=== PATIENT | female | born 1960 | race Caucasian/White ===

== ENCOUNTER 2019-01-14 15:00 | Outpatient (RCR) | payer BC, SELFPAY ==
--- NOTE | 2018-12-09 16:54 | HMH.PTOPEV ---
PT Outpatient Evaluation Rehab PT Outpatient Evaluation Start: 12/09/18 16:38 Freq: Status: Active Protocol: Document 12/09/18 16:39 TISHAKEY (Rec: 12/09/18 16:54 TISHAKEY [id number]) Electronically Signed By Solis Lundberg PT 12/09/18 16:39 Outpatient Therapy Subjective History Subjective History This is the initial Physical THerapy evaluation for Sue Zhang. Pt is a 58 y/o female referred to PT for c/o LBP and LLE pain. Pt reports insidious onset of pain in lumbosacral area and LLE. t reports she began noticing pain in recent trip to [place]. Pt reports her pain is in post thigh and anterior medial thigh a Pt reports she recently began having lymphedema therapy for R ankle and lower leg.begannd lumbosacral area. Chief Complaint Pain,Stiff Symptom Type Ache,Burning,Other Symptoms Relieved By Rest/Positioning,Prescription Meds Symptoms Aggravated By Physical Activity,Twisting, Walking Prior Functional Limitations None Current Functional Limitations Housework,Driving,Sleeping, Recreation Activity,Walking, Stairs Symptom Description Constant but Variable Level of pain today (0-10) 2 Pain scale - at its best (0-10) 2 Pain scale - at its worst (0-10) 6 Lumbopelvic Eval Gait Observation General Gait Pattern Observation Antalgic Gait,Decrease Weight Bear (R),Decrease Stride Lngth (L) Palapation tenderness bilateral buttock tenderness Yes Lumbar/Sacral Palpation Findings Tenderness Lumbar/Sacral Palpation Overall Comment TTP B SI joint Range of Motion Lumbar Spine ROM Reason Not Measured Within Functional Limits Special Tests Lumbar Spine Screen Negative Hip Scouring (Quadrant) Test Negative Left,Negative Right Sciatic Nerve Tension Test Negative Left,Negative Right Reverse Sciatic Nerve Tension Test Negative Left,Negative Right Hip 90-90 Straight Leg Raise Test Negative Left,Negative Right Unilateral Straight Leg Raise (Lasegue) Negative Left,Negative Right Test Sacroiliac Joint Compression Test Positive Left Sacroiliac Joint Distraction Test Positive Left Outpatient Therapy Assessment Impairments Problems/Impairmments Palpation Tenderness,Impaired
== END 2019-01-14 15:05 | disposition home or self-care (01) ==
LOC: PT 15:00
PROVIDERS: Visit Provider Internal Medicine Adolescent Medicine
DX: M54.5 Low back pain (principal); M54.32 Sciatica, left side
CPT/HCPCS: 97110; 97163

== ENCOUNTER 2019-01-14 16:00 | Outpatient (RCR) | payer BC, SELFPAY ==
--- NOTE | 2018-11-18 08:35 | HMH.PTOPWND ---
Rehab Outpt Wound Evaluation Rehab OP Wound Evaluation Start: 11/18/18 07:57 Freq: Status: Active Protocol: Document 11/18/18 08:27 JESS (Rec: 11/18/18 08:35 PHORNE [id number]) Electronically Signed By Kiko Lamb, PT 11/18/18 08:27 Subjective/History History History Pt is 58 yowf who presents with c/o increased swelling in malick LE, right worse than left , x ~ 3-4 yrs with insidious onset of symptoms. 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 She also reports the swelling decreases at night while she sleeps. She also c/o newer onset LB and malick thigh pain x ~ 3-4 mos with insidious onset also, however it is unclear if these two problems are related. She has hx of asthma, and C- section x 1. Subjective Subjective Currently no c/o pain, but pain in the LB and upper legs is rated 7/10 at worst. Pain is worst with walking and standing. 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 Stemmer's sign Stemmer's Sign no Stage of Lymphedema Lymphedema stages Stage I (Pitting edema, reduces w/ elevation, no fibrosis) Skin Changes Dry Skin Yes Redness Yes Pain Scale Pain Scale (0-10) 7 Affected Extremities Areas Affected by Lymphedema/Edema Right Lower Extremity Left Lower Extremity Manual Lymphatic Drainage Treatment Area MLD Treatment Area Right Lower Extremity Left Lower Extremity Wound Problems/Impairments Impairments Problems/Impairmments Palpation Tenderness Impaired Endurance Impaired Walking Impaired Standing Impaired Recreational Activities Increased Edema Lymphedema Present Subjective C/O Pain Impaired Self Care/Self Management Prognosis Rehab Potent
== END 2019-01-14 16:05 | disposition home or self-care (01) ==
LOC: PT 16:00
PROVIDERS: Visit Provider Internal Medicine Adolescent Medicine
DX: I89.0 Lymphedema, not elsewhere classified (principal); L03.116 Cellulitis of left lower limb
CPT/HCPCS: 97140

== ENCOUNTER → 2020-11-15 17:38 | Outpatient (CLI) | payer BC, SELFPAY | PROVIDERS: PCP Internal Medicine Adolescent Medicine; Visit Provider Internal Medicine Adolescent Medicine | DX: Z20.822 Contact with and (suspected) exposure to COVID-19 (principal) | CPT/HCPCS: U0003 ==

== ENCOUNTER → 2020-11-18 07:07 | Outpatient (CLI) | payer BC, SELFPAY ==
--- NOTE | 2020-11-18 07:21 | US_ITS ---
PROCEDURE: US ABDOMEN LIMITED CLINICAL INDICATION: EPIGASTRIC PAIN,GASTRITIS COMPARISON: No exams were available for comparison FINDINGS: PANCREAS: Unremarkable. No obvious mass or abnormal fluid collection. No ductal dilatation LIVER: No focal liver lesions demonstrated. Homogeneous echogenicity. No intrahepatic biliary ductal dilatation evident. There is appropriate direction of blood flow within a non dilated portal vein RIGHT KIDNEY: Unremarkable. Normal size and echogenicity. No hydronephrosis GALLBLADDER: Wall echo shadow sign noted of the gallbladder approximately 9 cm in length. The posterior wall the gallbladder and the central aspect of the gallbladder not visualized due to the shadowing stones.. The common bile duct is normal at 3 mm. No anterior gallbladder wall thickening. IMPRESSION: Wall echo shadow sign consistent with gallbladder filled with stones which may be distended Dictated by: Avinash Taylor MD 11/18/2020 09:33 Avinash Taylor MD in [facility] 11/18/2020 09:33
[2020-11-18 08:33] LABS: Chloride 108 mmol/L (98-107); Potassium 3.6 mmoL/L (3.5-5.1); Sodium 142 mmol/L (136-145)
[2020-11-18 08:36] LABS: Alanine Aminotransferase 17 U/L (12-78); Albumin Level 3.7 g/dl (3.5-5.0); Alkaline Phosphatase 69 U/L (38-126); Anion Gap 9.6 mEq/L (5-15); Aspartate Amino Transferase 25 U/L (14-36); Bilirubin,Total 0.5 mg/dl (0.2-1.3); Blood Urea Nitrogen 19 mg/dl (7-17); Calcium 9.4 mg/dl (8.4-10.2); Carbon Dioxide 28 mmol/L (22.0-30.0); Estimated Glomerular Filt Rate 125 ml/min (>60); GFR (African American) 152 ML/MIN (>60); Globulin 3.7 g/dL (1.3-3.2); Glucose 129 mg/dl (74-100); Lipase 72 U/L (23-300); Total Protein,Serum 7.4 g/dl (6.3-8.2)
== END ==
PROVIDERS: PCP Internal Medicine Adolescent Medicine; Visit Provider Internal Medicine Adolescent Medicine
DX: R10.13 Epigastric pain (principal); K29.00 Acute gastritis without bleeding
CPT/HCPCS: 36415; 76705; 80053; 83690

== ENCOUNTER → 2020-12-09 09:33 | Outpatient (CLI) | payer BC, SELFPAY ==
[2020-12-09 10:40] LABS: Blood Urea Nitrogen 18 mg/dl (7-17); Estimated Glomerular Filt Rate 162 ml/min (>60); GFR (African American) 196 ML/MIN (>60)
== END ==
PROVIDERS: Visit Provider Surgery
DX: Z01.812 Encounter for preprocedural laboratory examination (principal)
CPT/HCPCS: 36415; 82565; 84520

== ENCOUNTER → 2020-12-15 09:37 | Outpatient (CLI) | payer BC, SELFPAY ==
--- NOTE | 2020-12-15 09:37 | CT_ITS ---
PROCEDURE: CT ABDOMEN PELVIS W CON CLINICAL INDICATION: mid/lower abdominal pain COMPARISON: No exams were available for comparison TECHNIQUE: Axial images obtained with sagittal and coronal reformats. All CT scans at the facility use one or more dose reduction, viz: automated exposure control, ma/kV adjustment per patient size (including targeted exams where dose is matched to indication, i.e. head), or iterative reconstruction technique. FINDINGS: LOWER THORAX: Bibasal atelectasis. Vascular calcification of the mitral valve is noted. 2 atherosclerotic vascular calcification of the aortic valve. HEPATOBILIARY: Liver: No focal hepatic lesions. Gallbladder: Calcified gallstones are present, without pericholecystic stranding. Biliary: No intrahepatic or extrahepatic ductal dilation. PANCREAS: No focal masses or ductal dilatation. SPLEEN:No splenomegaly. Few splenic calcifications are noted, likely secondary to prior granulomatous disease. ADRENALS:No adrenal nodules. KIDNEYS/URETERS/BLADDER: Nonobstructing left renal calculus measuring 3 millimeters. No hydronephrosis, or solid mass lesions are seen in the visualized portions of the kidneys. PERITONEUM / RETROPERITONEUM: No free air or fluid. LYMPH NODES: No free air or fluid. The uterus is unremarkable. Focal calcifications noted, may represent calcified fibroids. VASCULAR: Minor atherosclerotic vascular calcification of the abdominal aorta GI TRACT: No distention, wall thickening, or inflammatory stranding. Mild to moderate fecal retention of the colon is noted. The appendix is not visualized although no secondary signs of appendicitis are noted. ABDOMINAL WALL: Small fat containing umbilical hernia is noted. SOFT TISSUES: Unremarkable. BONES: Unremarkable. IMPRESSION: Cholelithiasis without evidence of cholecystitis. Nonobstructing left renal calculus measuring 3 millimeters. No evidence of hydronephrosis. Dictated by: Jackelyn York 12/15/2020 13:51 Jackelyn York in [facility] 12/15/2020 13:51
== END ==
PROVIDERS: PCP Internal Medicine Adolescent Medicine; Visit Provider Surgery
DX: R10.9 Unspecified abdominal pain (principal)
CPT/HCPCS: 74177; Q9967

== ENCOUNTER → 2020-12-16 10:49 | Outpatient (CLI) | payer BC, SELFPAY | PROVIDERS: PCP Internal Medicine Adolescent Medicine; Visit Provider Internal Medicine Adolescent Medicine | DX: Z20.822 Contact with and (suspected) exposure to COVID-19 (principal) | CPT/HCPCS: U0003 ==

== ENCOUNTER → 2021-03-20 11:35 | Outpatient (CLI) | payer BC, SELFPAY | PROVIDERS: Visit Provider Internal Medicine Adolescent Medicine | DX: Z20.822 Contact with and (suspected) exposure to COVID-19 (principal) | CPT/HCPCS: U0003 ==

== ENCOUNTER 2021-04-05 09:58 | Outpatient (CLI) | payer BC, SELFPAY ==
[2021-04-05] VITALS (7 sets, daily range): BP systolic 120–142; BP diastolic 76–88; PULSE 79–111; RESP 18–20; TEMP 36.9; O2SAT 93–95
== END 2021-04-05 12:30 | disposition home or self-care (01) ==
PROVIDERS: PCP Internal Medicine Adolescent Medicine; Visit Provider Internal Medicine Adolescent Medicine
DX: U07.1 COVID-19 (principal)
CPT/HCPCS: 96365

== ENCOUNTER → 2022-05-15 07:50 | Outpatient (CLI) | payer BC, SELFPAY | PROVIDERS: PCP Internal Medicine Adolescent Medicine; Visit Provider Internal Medicine Adolescent Medicine | DX: R06.81 Apnea, not elsewhere classified (principal); R06.83 Snoring | CPT/HCPCS: G0399 ==

== ENCOUNTER 2022-12-23 07:26 | Emergency (ER) | payer BC, SELFPAY ==
[2022-12-23] VITALS (10 sets, daily range): BP systolic 123–179; BP diastolic 63–103; PULSE 76–108; RESP 18–22; TEMP 36.4; O2SAT 92–100; BMI 53.0
--- NOTE | 2022-12-23 07:33 | ECG_ITS ---
APPROVED REPORT Exam: Resting ECG HR:93 bpm ECG Measurements Heart Rate 93 AXES ND 154 P 57 QRSd 98 QRS 53 QT 334 T 38 QTc 385 Conclusion SINUS RHYTHM NORMAL ECG UNCONFIRMED REPORT Electronically signed by : Owen Marsh MD 12/24/2022 20:23:54
--- NOTE | 2022-12-23 07:43 | XR_ITS ---
PROCEDURE INFORMATION: Exam: XR Chest Exam date and time: 12/23/2022 7:45 AM Age: 62 years old Clinical indication: Dyspnea; Additional info: Shortness of air TECHNIQUE: Imaging protocol: Radiologic exam of the chest. Views: 2 views. COMPARISON: CT ABDOMEN PELVIS W CON 12/15/2020 10:21 AM FINDINGS: Lungs: Moderate increased interstitial opacities in both lungs likely represents moderate pulmonary edema. Pleural spaces: Unremarkable. No pleural effusion. No pneumothorax. Heart/Mediastinum: Unremarkable. No cardiomegaly. Vasculature: The aorta is calcified and tortuous. Bones/joints: Unremarkable. IMPRESSION: 1. Moderate increased interstitial opacities in both lungs likely represents moderate pulmonary edema. 2. The aorta is calcified and tortuous.
--- NOTE | 2022-12-23 07:46 | PC.NURSE ---
rad notified of xray order
[2022-12-23 07:51] LABS: Basophils % 0.6 % (0.1-2.0); Eosinophils # 0.3 K/mm3 (0.0-0.4); Eosinophils % 4.5 % (0.1-12.0); Hematocrit 38.6 % (37.0-47.0); Hemoglobin 12.4 g/dL (12.2-16.2); Lymphocytes # 1.7 K/mm3 (0.7-4.5); Lymphocytes % 25.1 % (10-50); Mean Corpuscular HGB Conc 32.1 g/dL (31.8-35.4); Mean Corpuscular Hemoglobin 30.1 pg (27.0-31.2); Mean Corpuscular Volume 93.7 fl (81-99); Mean Platelet Volume 8.8 fl (7.4-10.4); Monocytes # 0.5 K/mm3 (0.1-1.0); Monocytes % 6.9 % (1.7-9.3); Neutrophils # 4.1 K/mm3 (1.8-7.8); Neutrophils % 62.8 % (37.0-80.0); Platelet Count 141 K/mm3 (142-424); Red Blood Count 4.12 M/mm3 (4.20-5.40); Red Cell Distribution Width 14.4 % (11.5-17.5); White Blood Count 6.6 K/mm3 (4.8-10.8)
[2022-12-23 07:59] LABS: Anion Gap 16.7 mEq/L (5-15); Blood Urea Nitrogen 19 mg/dl (7-17); Calcium 8.8 mg/dl (8.4-10.2); Carbon Dioxide 27 mmol/L (22.0-30.0); Chloride 104 mmol/L (98-107); Creatinine Clearance Estimated 46 mL/min (50-200); Estimated Glomerular Filt Rate 125 ml/min (>60); GFR (African American) 151 ML/MIN (>60); Glucose 121 mg/dl (74-100); Potassium 3.7 mmoL/L (3.5-5.1); Sodium 144 mmol/L (136-145)
--- NOTE | 2022-12-23 07:59 | PC.NURSE ---
back from XR.
[2022-12-23 08:04] LABS: D-Dimer 1.37 ug/mL (0.0-0.5)
--- NOTE | 2022-12-23 08:07 | CT_ITS ---
PROCEDURE INFORMATION: Exam: CTA Chest With Contrast Exam date and time: 12/23/2022 8:53 AM Age: 62 years old Clinical indication: Patient HX: PT has asthma, acute onset dyspnea; Additional info: Elevated d-dimer TECHNIQUE: Imaging protocol: Computed tomographic angiography of the chest with contrast. Exam focused on the arteries. 3D rendering (Not supervised by radiologist): MIP and/or 3D reconstructed images were created by the technologist. Radiation optimization: All CT scans at this facility use at least one of these dose optimization techniques: automated exposure control; mA and/or kV adjustment per patient size (includes targeted exams where dose is matched to clinical indication); or iterative reconstruction. Contrast material: ISOVUE; Contrast volume: 70 ml; Contrast route: INTRAVENOUS (IV); REPORTING DATA: Count of CT and Cardiac NM exams in prior 12 months: This patient has received 0 known CTs and 0 known cardiac nuclear medicine studies in the 12 months prior to the current study. COMPARISON: CR XR CHEST 2V 12/23/2022 7:45 AM FINDINGS: Pulmonary arteries: The main pulmonary artery at the level of the right pulmonary artery measures 2.8 cm. No evidence of acute pulmonary embolism upto the subsegmental level. Aorta: The ascending aorta at the level of the right pulmonary artery measures 3.4 cm. Mild atherosclerotic calcifications affect the aorta and its branches. Lungs: Moderate patchy opacities with septal thickening is in both lungs likely represents moderate pulmonary edema. Tree-in-bud opacities in the right upper lobe may represent infection. Pleural spaces: Mild pleural bilateral pleural effusions are seen. Heart: Thick mitral valve calcifications are noted. Lymph nodes: Mildly enlarged pretracheal lymph node measuring 1.3 cm is likely reactive. Bones/joints: There are mild degenerative changes present in the spine. Soft tissues: Unremarkable. IMPRESSION: 1. No evidence of acute pulmonary embolism upto the subsegmental level. 2. Moderate patchy opacities with septal thickening is in both lungs likely represents moderate pulmonary edema. Tree-in-bud opacities in the right upper lobe may represent infection. 3. Mild pleural bilateral pleural effusions. 4. Mildly enlarged pretracheal lymph node measuring 1.3 cm is likely reactive.
[2022-12-23 08:13] LABS: NT Pro Brain Natriuretic Pep. 195 pg/mL (0-125)
[2022-12-23 08:14] LABS: Troponin I < 0.01 ng/ml (0.00-0.034)
--- NOTE | 2022-12-23 08:14 | PC.NURSE ---
called rad for ct
--- NOTE | 2022-12-23 08:41 | PC.NURSE ---
Rounded on patient; call cai within reach
--- NOTE | 2022-12-23 08:42 | PC.NURSE ---
notified rad staff pt is finished with neb treatment and ready for CT
--- NOTE | 2022-12-23 09:16 | HMH.EDGENADL ---
Discharge Plan Disposition Patient Disposition: Home, Self-Care Condition: Good Prescriptions Prescriptions: New prednisone 20 mg tablet 20 mg PO BID 5 Days Qty: 10 0RF azithromycin 500 mg tablet 500 mg PO DAILY 5 Days Qty: 5 0RF No Action hydrochlorothiazide 25 mg tablet 25 mg PO Referrals Follow up/Referrals: Owen Marsh MD [Primary Care Provider] - See instructions Clinical Impressions Clinical Impression: Asthma with exacerbation Discharge ED Provider: Rudy (ED)[facility] Adult HPI General Chief complaint: Shortness of Breath/Dyspnea Stated complaint: SOA Time Seen by Provider: 12/23/22 08:06 Mode of Arrival: Ambulatory Source of Information: Patient Limitations: No Limitations Description of Symptoms (Recalled from ER Triage Doc. by RN): Presents via POV d/t shortness of air that started Sat this morning when she woke up. +Dry cough. Denies fever bell captain. Denies chest pain. Hx of Asthma. +Asa 81mg. Further reports mild swelling to bilateral ankles. History of Present Illness HPI narrative: 62yo F presents to the ER secondary to shortness of breath and cough. Symptoms began on Saturday and progressively worsening. Cough is dry. Denies any fever or chest pain. Reports a history of asthma for which she uses Breo. Denies any use of albuterol. She thought her symptoms were weather related but they have not improved after the weather past. Related Data Home Medications Medication Instructions Recorded Confirmed hydrochlorothiazide 25 mg tablet 25 mg PO 12/09/20 12/19/20 Previous Rx's Medication Instructions Recorded azithromycin 500 mg tablet 500 mg PO DAILY 5 days #5 tabs 12/23/22 prednisone 20 mg tablet 20 mg PO BID 5 days #10 tabs 12/23/22 Allergies Allergy/AdvReac Type Severity Reaction Status Date / Time egg Allergy Unknown Verified 12/19/20 10:15 hydroxyzine [From Vistaril] Allergy Unknown Verified 12/19/20 10:15 shellfish derived Allergy Unknown Verified 12/19/20 10:15 [facility] Disclaimer: The information contained in this section may have been updated after the patient was seen, as this information can be updated by other users. Social History Smoking Status: Unknown if ever smoked alcohol intake: never current occupational status: other Travel in the last 8 weeks: None ROS Obtained: Yes Systems reviewed as appropriate & no additional complaints except as documented Physical Exam General General appearance: alert and in no apparent distress Head Head exam: atraumatic Eye Eye exam: Present normal appearance ENT ENT exam: Present mucous membranes moist Neck Neck exam: Present trachea midline Chest Chest inspection: Present symmetric chest wall rise Respiratory Respiratory exam: Present wheezes (Faint end expiratory wheezes bilaterally); Absent respiratory distress, stridor, accessory muscle use or prolonged expiratory phase Cardiovascular Cardiovascular exam: Present regular rate, normal rhythm and normal heart sounds Abdominal Exam Abdominal exam: Present soft Extremities Exam Extremities exam: Present normal capillary refill Neurological Exam Neurological exam: Present alert, oriented X3 and CN II-XII intact Psychiatric Psychiatric exam: Present normal affect Skin Skin exam: Present warm Medical Decision Making Medical Records Medical records reviewed: Yes I reviewed the patient's medical records. [place] Inquiry Pt receiving controlled substance: No Vital Signs: 12/23/22 07:32 12/23/22 07:41 12/23/22 07:31 Temperature 97.6 F Temperature Source Oral Pulse Rate 76 99 H Pulse Rate [Right] 108 H Respiratory Rate 22 22 Blood Pressure 179/103 H Blood Pressure [Right Arm] 179/103 H Blood Pressure Mean 114 Blood Pressure Mean [Right Arm] 128 02 Sat by Pulse Oximetry 96 97 93 L Oxygen Delivery Method Room Air Room Air 12/23/22 08:26
--- NOTE | 2022-12-23 09:30 | PC.NURSE ---
Updated patient on plan of care. Call cai within reach
--- NOTE | 2022-12-23 10:18 | PC.NURSE ---
ER at discussing results and POC
== END 2022-12-23 10:36 | disposition home or self-care (01) ==
PROVIDERS: Emergency Provider Emergency Medicine; PCP Internal Medicine Adolescent Medicine
DX: J45.901 Unspecified asthma with (acute) exacerbation (principal); R22.43 Localized swelling, mass and lump, lower limb, bilateral; Z79.82 Long term (current) use of aspirin; R06.02 Shortness of breath
CPT/HCPCS: 71046; 71275; 80048; 83880; 84484; 85025; 85378; 93005; 99285; Q9967

== ENCOUNTER → 2023-01-14 13:09 | Outpatient (CLI) | payer BC, SELFPAY | LOC: RT 13:09 | PROVIDERS: PCP Internal Medicine Adolescent Medicine; Visit Provider Internal Medicine Adolescent Medicine | DX: I49.9 Cardiac arrhythmia, unspecified (principal) | CPT/HCPCS: 93225; 93226 ==

== ENCOUNTER → 2023-01-18 10:40 | Outpatient (CLI) | payer BC, SELFPAY ==
[2023-01-18 11:42] LABS: Basophils % 0.4 % (0.1-2.0); Eosinophils # 0.3 K/mm3 (0.0-0.4); Hematocrit 42.5 % (37.0-47.0); Hemoglobin 13.3 g/dL (12.2-16.2); Lymphocytes # 1.3 K/mm3 (0.7-4.5); Mean Corpuscular HGB Conc 31.4 g/dL (31.8-35.4); Mean Corpuscular Hemoglobin 29.6 pg (27.0-31.2); Mean Corpuscular Volume 94.3 fl (81-99); Mean Platelet Volume 8.4 fl (7.4-10.4); Monocytes # 0.5 K/mm3 (0.1-1.0); Monocytes % 7.5 % (1.7-9.3); Neutrophils # 4.4 K/mm3 (1.8-7.8); Platelet Count 136 K/mm3 (142-424); Red Blood Count 4.51 M/mm3 (4.20-5.40); Red Cell Distribution Width 14.2 % (11.5-17.5); White Blood Count 6.4 K/mm3 (4.8-10.8)
[2023-01-18 11:49] LABS: Hemoglobin A1C 5.6 % (4.0-6.0)
[2023-01-18 11:57] LABS: Alanine Aminotransferase 30 U/L (12-78); Albumin Level 4.1 g/dl (3.5-5.0); Albumin/Globulin Ratio 1.2 (1.1-1.8); Alkaline Phosphatase 71 U/L (38-126); Anion Gap 15.1 mEq/L (5-15); Aspartate Amino Transferase 42 U/L (14-36); Bilirubin,Total 0.6 mg/dl (0.2-1.3); Blood Urea Nitrogen 17 mg/dl (7-17); Calcium 9.1 mg/dl (8.4-10.2); Carbon Dioxide 28 mmol/L (22.0-30.0); Chloride 105 mmol/L (98-107); Estimated Glomerular Filt Rate 125 ml/min (>60); GFR (African American) 151 ML/MIN (>60); Globulin 3.4 g/dL (1.3-3.2); Glucose 106 mg/dl (74-100); Magnesium 1.8 mg/dl (1.6-2.3); Potassium 4.1 mmoL/L (3.5-5.1); Sodium 144 mmol/L (136-145); Total Protein,Serum 7.5 g/dl (6.3-8.2)
[2023-01-18 12:25] LABS: Thyroid Stimulating Hormone 1.25 uIU/mL (0.465-4.68)
== END ==
PROVIDERS: PCP Internal Medicine Adolescent Medicine; Visit Provider Nurse Practitioner Family
DX: I48.91 Unspecified atrial fibrillation (principal); R73.9 Hyperglycemia, unspecified
CPT/HCPCS: 36415; 80053; 83036; 83735; 84443; 85025

== ENCOUNTER 2024-11-06 04:00 | Observation (INO) | payer MEDICARE, SELFPAY ==
[2024-11-06] VITALS (12 sets, daily range): BP systolic 95–191; BP diastolic 53–117; PULSE 72–111; RESP 14–30; TEMP 36.5–37.1; O2SAT 93–98; BMI 51.2; BMI 51.7; BMI 51.5
--- NOTE | 2024-11-06 04:22 | ECG_ITS ---
APPROVED REPORT Exam: Resting ECG HR:106 bpm ECG Measurements Heart Rate 106 AXES AK 203 P 65 QRSd 129 QRS 48 QT 349 T 73 QTc 411 Conclusion SINUS TACHYCARDIA WITH OCCASIONAL SUPRAVENTRICULAR PREMATURE COMPLEXES MODERATE INTRAVENTRICULAR CONDUCTION DELAY [110+ ms QRS DURATION] No STEMI Electronically signed by : FRANK MARS, 11/07/2024 03:24:39
--- NOTE | 2024-11-06 04:24 | XR_ITS ---
PROCEDURE INFORMATION: Exam: XR Chest Exam date and time: 11/06/2024 4:46 AM Age: 64 years old Clinical indication: Shortness of breath; Additional info: Acute SOA TECHNIQUE: Imaging protocol: Radiologic exam of the chest. Views: 1 view. COMPARISON: CT ANGIO CHEST PE PROTOCOL 12/23/2022 8:53 AM FINDINGS: Lungs: There are extensive bilateral pulmonary parenchymal infiltrates likely representing diffuse pulmonary edema. A component of pneumonia can not be entirely excluded. Pleural spaces: Unremarkable. No pleural effusion. No pneumothorax. Heart/Mediastinum: Moderate cardiomegaly. Bones/joints: Unremarkable. IMPRESSION: Cardiomegaly and suspected diffuse pulmonary edema. Consider CHF.
[2024-11-06] MEDS: NITROGLYCERIN 0.4MG SL TABLET 0.4 MG SL (04:30)
[2024-11-06] MEDS: MAGNESIUM SULFATE IN WATER 2 GM/50 ML PIGGYBACK IV (04:30)
--- NOTE | 2024-11-06 04:32 | ED_ITS ---
Discharge Plan Disposition Patient Disposition: Admitted Clinical Impressions Clinical Impression: Acute hypoxic respiratory failure, Flash pulmonary edema, Volume overload Discharge ED Provider: Gavino Cifuentes Adult HPI General Chief complaint: Shortness of Breath/Dyspnea Stated complaint: Shortness of Breath Time Seen by Provider: 11/06/24 04:10 Mode of Arrival: EMS Source of Information: Patient and EMS Description of Symptoms (Recalled from ER Triage Doc. by RN): pt presents via ems with c/o SOA that began appox 0000 with no know precipitating factors. Pt presents with obvious distress and on NRB per EMS. Pt reports asthma HX that is well controlled at home. Pt denies cough or fever at home. Denies chest pain History of Present Illness HPI narrative: 64-year-old female with history of asthma obesity intermittent A-fib presents with acute onset shortness of breath. Started at midnight, has been worsening. Patient was in respiratory distress and given breathing treatment en route by EMS with minimal improvement. On arrival patient is tripoding, short of breath. Reports she is on an antibiotic for a sinus infection but denies any significant fever cough or other respiratory symptoms prior to this onset. Reports her asthma is normally well controlled. Reports that her blood pressure was low within the last week or so and she was taken off her HCTZ. Related Data Home Medications ?Medication ?Instructions ?Recorded ?Confirmed hydrochlorothiazide 25 mg tablet 25 mg PO 12/09/20 12/19/20 Previous Rx's ?Medication ?Instructions ?Recorded azithromycin 500 mg tablet 500 mg PO DAILY 5 days #5 tabs 12/23/22 prednisone 20 mg tablet 20 mg PO BID 5 days #10 tabs 12/23/22 Allergies Allergy/AdvReac Type Severity Reaction Status Date / Time egg Allergy Unknown Verified 12/19/20 10:15 hydroxyzine (From Vistaril) Allergy Unknown Verified 12/19/20 10:15 shellfish derived Allergy Unknown Verified 12/19/20 10:15 [facility] Disclaimer: The information contained in this section may have been updated after the patient was seen, as this information can be updated by other users. Social History Smoking Status: Never smoker alcohol intake: never current occupational status: other Travel in the last 8 weeks: None Other Medical History Have you received the Pneumonia Vaccine: No ROS Obtained: Yes All systems reviewed & no additional complaints except as documented Physical Exam General General appearance: alert and in no apparent distress Head Head exam: atraumatic and normocephalic Eye Eye exam: Present normal appearance, PERRL and EOMI ENT ENT exam: Present normal oropharynx and normal external ear exam Neck Neck exam: Present normal inspection and full ROM Chest Chest inspection: Present normal inspection and symmetric chest wall rise; Absent tenderness Respiratory Respiratory exam: Present normal lung sounds bilaterally; Absent respiratory distress Cardiovascular Cardiovascular exam: Present regular rate and normal rhythm Abdominal Exam Abdominal exam: Present soft; Absent distention, tenderness or guarding Extremities Exam Extremities exam: Present normal inspection; Absent edema or joint swelling Back Exam Back exam: Present normal inspection; Absent tenderness Neurological Exam Neurological exam: Present alert and oriented X3; Absent motor sensory deficit Psychiatric Psychiatric exam: Present normal affect and normal mood Skin Skin exam: Present warm, dry and normal color Lymphatic Lymphatic Findings: no adenopathy Medical Decision Making Medical Records Medical records reviewed: Yes I reviewed the patient's medical records. Screening: Per USPSTF and CDC recommendations, given the prevalence of disease in our region, it is our hospital?s policy to screen for HIV and viral Hepatitis for all patients aged 18 and over and those with ongoing risk factors. [place] Inquiry Pt receiving controlled substance: No [place] was queried for this patient: No Vital Signs: 11/06/24 04:25 11/06/24 04:40 11/06/24 04:40 Temperature 98 F Temperature Source Oral Pulse Rate 94 H Pulse Rate [Radial] 111 H Respiratory Rate 30 H Blood Pressure Blood Pressure [Left Arm] 191/117 H Blood Pressure Mean [Left Arm] 141 Blood Pressure Position Blood Pressure Position [Left Arm] Sitting 02 Sat by Pulse Oximetry 97 98 Oxygen Delivery Method Non-Rebreather Non-Rebreather Oxygen Flow Rate (LPM) 15 15 Fraction of Inspired Oxygen 11/06/24 04:40 11/06/24 04:43 11/06/24 04:46 Temperature Temperature Source Pulse Rate 95 H 93 H Pulse Rate [Radial] Respiratory Rate 20 Blood Pressure 117/79 Blood Pressure [Left Arm] Blood Pressure Mean [Left Arm] Blood Pressure Position Blood Pressure Position [Left Arm] 02 Sat by Pulse Oximetry 98 98 Oxygen Delivery Method Non-Rebreather Oxygen Flow Rate (LPM) 15 Fraction of Inspired Oxygen 11/06/24 04:57 11/06/24 05:00 11/06/24 06:11 Temperature 98.7 F Temperature Source Pulse Rate 92 H 98 H Pulse Rate [Radial] Respiratory Rate 14 20 Blood Pressure 133/83 133/83 Blood Pressure [Left Arm] Blood Pressure Mean [Left Arm] Blood Pressure Position Sitting Blood Pressure Position [Left Arm] 02 Sat by Pulse Oximetry 97 Oxygen Delivery Method Nasal Cannula Oxygen Flow Rate (LPM) 0 Fraction of Inspired Oxygen 35 Lab Data Lab results reviewed: Yes I reviewed the patient's lab results. Lab Results 11/06/24 04:25: WBC 12.3 H, RBC 4.09 L, Hgb 12.2, Hct 40.5, MCV 99.0, MCH 29.8, MCHC 30.1 L, RDW 15.1, Plt Count 150, MPV 10.7 H, Neut % (Auto) 74.8, Lymph % (Auto) 14.1, [place] % (Auto) 6.8, Eos % (Auto) 2.1, Baso % (Auto) 0.5, Neut # (Auto) 9.2 H, Lymph # (Auto) 1.7, [place] # (Auto) 0.8, Eos # (Auto) 0.3, Baso # (Auto) 0.1, D-Dimer 1.13 H, Sodium 140, Potassium 4.6, Chloride 112 H, Carbon Dioxide 19 L, Anion Gap 13.6, BUN 22 H, Creatinine 0.70, Estimated Creat Clear 44, Estimated GFR 84, Est GFR ( Amer) 102, Glucose 192 H, Calcium 9.6, Magnesium 1.8, Total Bilirubin 1.2, AST 43 H, ALT 23, Alkaline Phosphatase 85, Troponin I < 0.01, NT-Pro-B Natriuret Pep 987 H, Total Protein 7.4, Albumin 3.8, Globulin 3.6 H, Albumin/Globulin Ratio 1.1 11/06/24 04:26: VBG pH 7.16 L, VBG pCO2 52.9 H, VBG pO2 100.1 H, VBG HCO3 18.4 L , VBG Total CO2 20.0 L, VBG O2 Saturation 96.3 H, VBG Base Excess -10.3 L, VBG Lactic Acid 1.1 11/06/24 04:50: SARS-CoV-2 (PCR) Not detected, Influenza A Untype (PCR) Not detected, Influenza Type B (PCR) Not detected 11/06/24 04:25 11/06/24 04:25 Orders (Tests/Meds): ED MEDICATIONS Generic Name Dose Route Start Last Admin Trade Name Freq PRN Reason Stop Dose Admin Acetaminophen 650 mg 11/06/24 05:37 Acetaminophen 325mg Tab PO 12/06/24 05:36 Q4HP PRN Fever or Mild Pain (1-3) Iopamidol 80 ml 11/06/24 05:59 11/06/24 06:00 Iopamidol-370 (76%);100ml Bottle IV 11/06/24 06:00 80 ml ONCE ONE Administration Nitroglycerin 0.4 mg 11/06/24 04:24 11/06/24 04:30 Nitroglycerin 0.4mg Sl Tablet SL 12/06/24 04:23 0.4 mg Q5MINP PRN Administration Chest Pain Sodium Chloride 3 ml 11/06/24 05:16 Sodium Chloride 3% 15ml Neb IH 12/06/24 05:15 ONCE PRN INDUCE SPUTUM COLLECTION Sodium Chloride 50 ml 11/06/24 05:59 11/06/24 06:00 0.9 % Sodium Chloride 50 Ml Vial IV 11/06/24 06:00 50 ml ONCE ONE Administration Sodium Chloride 10 ml 11/06/24 05:59 11/06/24 06:00 Sodium Chloride 0.9% 10ml Syr (Rad Only) IV 11/06/24 06:00 10 ml ONCE ONE Administration Discontinued Medications Generic Name Dose Route Start Last Admin Trade Name Freq PRN Reason Stop Dose Admin Albuterol/Ipratropium 3 ml 11/06/24 04:24 11/06/24 04:39 Ipratropium/Albuterol 3 Ml Neb 11/06/24 04:25 3 ml ONCE ONE Administration Furosemide 40 mg 11/06/24 04:48 11/06/24 04:51 Furosemide 40mg/4ml Vial IV 11/06/24 04:49 40 mg ONCE ONE Administration Magnesium Sulfate 2 gm in 50 mls @ 150 mls/hr 11/06/24 04:24 11/06/24 04:30 Magnesium Sulfate 2gm/50ml Premix IV 11/06/24 04:43 150 mls/hr ONCE ONE Administration Ceftriaxone Sodium 1 gm/ 50 mls @ 100 mls/hr 11/06/24 05:16 11/06/24 05:39 Sodium Chloride IV 11/06/24 05:45 100 mls/hr ONCE ONE Administration Azithromycin 500 mg/ Sodium 250 mls @ 250 mls/hr 11/06/24 05:17 Chloride IV 11/06/24 05:18 ONCE ONE ORDERS Category Date Time Status CT angio chest PE protocol Stat Cat Scan 11/06/24 05:20 Taken CXR --portable [XR chest portable] Stat Exams 11/06/24 04:24 Taken BNP [NT Pro Brain Natriuretic Pep.] Stat Lab 11/06/24 04:25 Completed CBC w/Auto Diff [Complete Blood Count Auto Diff] Stat Lab 11/06/24 04:25 Completed CMP [Comprehensive Metabolic Panel] Stat Lab 11/06/24 04:25 Completed D-Dimer Stat Lab 11/06/24 04:25 Completed MAG [Magnesium] Stat Lab 11/06/24 04:25 Completed Rapid PCR Covid and Flu A/B Stat Lab 11/06/24 04:50 Completed Trop I [Troponin I] Stat Lab 11/06/24 04:25 Completed Troponin I Q3H Lab 11/06/24 07:30 Ordered Troponin I Q3H Lab 11/06/24 10:30 Ordered Blood Culture Stat Micro 11/06/24 05:20 Received Sputum Culture & Gram Stain Stat Micro 11/06/24 05:16 Ordered VBG [Venous Blood Gas] Stat RT 11/06/24 04:26 Completed ECG Data Tracing #1: I reviewed this ECG and interpreted as documented below: Sinus tachycardia, no significant changes, no evidence of arrhythmia. QRS minimally prolonged. ECG initial impression date: 11/06/24 ECG initial impression time: 04:22 HEART Score History (anamnesis): Slightly suspicious ECG: Normal Age: 45-65 years Risk factors: 1-2 risk factors Troponin: </= normal limit HEART Score: 2 Medical Decision Narrative: 64-year-old female with history of asthma, obesity, intermittent A-fib presents for acute respiratory distress. History was obtained via interactive discussion with patient, EMS, chart review. On arrival, patient is afebrile, hypertensive with blood pressures in the 190s, tachypneic in significant respiratory distress, satting mid 90s on nonrebreather, no significant wheezing or prolonged expiratory phase on exam, patient has bilateral pitting edema. Differential includes but is not limited to asthma exacerbation, flash pulmonary edema, ARDS, pneumonia, PE, ACS. Patient was given nitro, IV magnesium, DuoNeb for symptomatic management and correction of underlying abnormalities. Patient was placed on BiPAP. Workup initiated including CBC CMP troponin EKG chest x-ray D-dimer VBG. Chest x-ray independently interpreted by me shows severe bilateral pulmonary edema. Patient was initiated on IV Lasix. Also initiated on IV antibiotic therapy for empiric coverage of possible infectious etiology. Laboratory workup independently interpreted by me and significant for mild leukocytosis, D-dimer elevated at 1.1, significant acidosis with bicarb 18, minimally elevated pCO2 at 52. Normal lactate. No significant renal dysfunction or electrolyte derangement. Initial troponin negative, BNP elevated at approximately 8000.. Given patient history, exam and workup, patient's presentation most likely represents sympathetic crashing acute pulmonary edema. Patient's respiratory status is markedly improved after interventions. Blood pressure initially in the 190s, now in the 120s. Interactive discussion was had with the hospitalist on-call for admission. Patient was admitted with CT angiogram pending to assess for PE and to further evaluate the lungs, on my brief evaluation I do not see any evidence of PE, patient has significant pulmonary edema and bilateral patchy opacities. Procedures Risk/Benefits of Procedure(s) Were Explained: Yes Critical Care Critical Care Time Critical Care Time: Yes Attestation: On 11/06/24, the high probability of a clinically significant, sudden or life threatening deterioration of the following system(s) respiratory required my full and direct attention, intervention and personal management. The time I documented below is in addition to time spent performing reported procedures but includes the following listed in this critical care notation. Total Time Total Critical Care Time: 45
--- NOTE | 2024-11-06 04:32 | PC.NURSE ---
Resp contacted and aware of need for VBG
[2024-11-06 04:38] LABS: Lactate Venous 1.1 mmol/L (0.4-2.0); VBG Base Excess -10.3 mmol/L (-2.4-2.3); VBG HCO3 18.4 mmol/L (23-30); VBG Oxygen Saturation 96.3 % (50-70); VBG PO2 100.1 mmol/L (28-40)
[2024-11-06] MEDS: IPRATROPIUM/ALBUTEROL 3 ML NEB IH (04:39)
[2024-11-06 04:40] LABS: VBG PCO2 52.9 mmol/L (35-51); VBG PH 7.16 mmol/L (7.31-7.41)
[2024-11-06 04:48] LABS: D-Dimer 1.13 ug/mL (0.0-0.5)
[2024-11-06] MEDS: FUROSEMIDE 40MG/4ML VIAL 40 MG IV (04:51)
[2024-11-06 04:52] LABS: Basophils # 0.1 K/mm3 (0-0.2); Basophils % 0.5 % (0.1-2.0); Eosinophils # 0.3 K/mm3 (0.0-0.4); Eosinophils % 2.1 % (0.1-12.0); Hematocrit 40.5 % (37.0-47.0); Hemoglobin 12.2 g/dL (12.2-16.2); Lymphocytes # 1.7 K/mm3 (0.7-4.5); Lymphocytes % 14.1 % (10-50); Mean Corpuscular HGB Conc 30.1 g/dL (31.8-35.4); Mean Corpuscular Hemoglobin 29.8 pg (27.0-31.2); Mean Platelet Volume 10.7 fl (7.4-10.4); Monocytes # 0.8 K/mm3 (0.1-1.0); Monocytes % 6.8 % (1.7-9.3); Neutrophils # 9.2 K/mm3 (1.8-7.8); Neutrophils % 74.8 % (37.0-80.0); Platelet Count 150 K/mm3 (142-424); Red Blood Count 4.09 M/mm3 (4.20-5.40); Red Cell Distribution Width 15.1 % (11.5-17.5); White Blood Count 12.3 K/mm3 (4.8-10.8)
[2024-11-06 04:53] LABS: Albumin Level 3.8 g/dl (3.5-5.0); Chloride 112 mmol/L (98-107); Potassium 4.6 mmoL/L (3.5-5.1); Sodium 140 mmol/L (136-145)
[2024-11-06 04:56] LABS: Alanine Aminotransferase 23 U/L (12-78); Albumin/Globulin Ratio 1.1 (1.1-1.8); Alkaline Phosphatase 85 U/L (38-126); Anion Gap 13.6 mEq/L (5-15); Aspartate Amino Transferase 43 U/L (14-36); Bilirubin,Total 1.2 mg/dl (0.2-1.3); Blood Urea Nitrogen 22 mg/dl (7-17); Calcium 9.6 mg/dl (8.4-10.2); Carbon Dioxide 19 mmol/L (22.0-30.0); Creatinine Clearance Estimated 44 mL/min (50-200); Estimated Glomerular Filt Rate 84 ml/min (>60); GFR (African American) 102 ML/MIN (>60); Globulin 3.6 g/dL (1.3-3.2); Glucose 192 mg/dl (74-100); Magnesium 1.8 mg/dl (1.6-2.3); Total Protein,Serum 7.4 g/dl (6.3-8.2)
[2024-11-06 05:06] LABS: NT Pro Brain Natriuretic Pep. 987 pg/mL (0-125)
[2024-11-06 05:15] LABS: Troponin I < 0.01 ng/ml (0.00-0.034)
--- NOTE | 2024-11-06 05:20 | CT_ITS ---
PROCEDURE INFORMATION: Exam: CTA Chest With Contrast Exam date and time: 11/06/2024 5:46 AM Age: 64 years old Clinical indication: Shortness of breath; Additional info: Pulmonary edema, SOA, positive dimer TECHNIQUE: Imaging protocol: Computed tomographic angiography of the chest with contrast. Exam focused on the arteries. 3D rendering (Not supervised by radiologist): MIP and/or 3D reconstructed images were created by the technologist. Radiation optimization: All CT scans at this facility use at least one of these dose optimization techniques: automated exposure control; mA and/or kV adjustment per patient size (includes targeted exams where dose is matched to clinical indication); or iterative reconstruction. Contrast material: ISOVUE; Contrast volume: 80 ml; Contrast route: INTRAVENOUS (IV); COMPARISON: CT ANGIO CHEST PE PROTOCOL 12/23/2022 8:53 AM FINDINGS: Pulmonary arteries: No visible pulmonary emboli. Aorta: The thoracic aorta is unremarkable and there is no evidence of an aneurysm or dissection of the thoracic aorta. Lungs: There are diffuse background mosaic attenuation throughout both lungs. There are also ground-glass infiltrates and consolidating lower lobe infiltrates. Although the findings are concerning for pulmonary edema, a component of pneumonia can not be excluded. Pleural spaces: Small bilateral pleural effusions. Heart: Mild cardiomegaly. Extensive mitral annulus calcification. Aortic valve calcification. No pericardial effusion. Coronary arteries: No calcified coronary artery disease appreciated. Lymph nodes: Several small mediastinal lymph nodes which do not reach pathologic size criteria. Bones/joints: Multilevel chronic degenerative changes throughout the visualized spine. No acute osseous lesions identified. Soft tissues: Unremarkable. IMPRESSION: 1. No evidence of PE and the thoracic aorta is unremarkable. 2. Diffuse bilateral pulmonary infiltrates as above. These infiltrates likely represent pulmonary edema but a component of pneumonia can not be excluded. 3. Mild cardiomegaly and small bilateral pleural effusions.
[2024-11-06] MEDS: CEFTRIAXONE 1 GM 1 GM in 0.9 % SODIUM CHLORIDE 50 ML IV (05:39)
--- NOTE | 2024-11-06 05:41 | CA_ITS ---
APPROVED REPORT EXAM: Comprehensive 2D, Doppler, and color-flow Echocardiogram Rail Track Layer: Lin Ceja, RCS, RVS Ht: 5 ft 0 in Wt: 280lbs BSA: 2.15 BP: 133/83 mmHg Indications: AFib, Asthma, COPD, HTN, SOB, Murmur Echo Enhancing Agent Comments: Technically limited exam due to Extreme body habitus, Patient follows with -Cardiology 2D Dimensions IVSd 1.32 cm F: 0.6-1.0 LVEF (Visual) 47.50 % PWd 1.07 cm F: 0.6 - 1.0 LA Volume 112.90 mL LVDd 4.74 cm F: 3.9 - 5.3 LA Volume Index [id number] mL/m2 (M/F) 16-34 LVDs 3.61 cm F: 2.2 - 3.5 Left Atrium 3.25 cm F: 2.7 - 3.8 M-Mode Dimensions LA Diam 4.24 cm (1.9-4.0) TAPSE 2.13 (<1.7) LV Diastology E Decel Time 230 (160-240 msec) E/A Ratio 1.23 MED A' 6.40 cm/s LAT A' 5.40 cm/s Pulm Vein s 21.00 cm/sec Aortic Valve ROJAS Index 0.55 cm2/m2 AoV Peak Joaquín. 286.0 (50-130 cm/s) AO Peak GR. 32.80 mmHg AO Mean GR. 17.00 (<5 mmHg) AO VTI 59.9 (18-25 cm) ROJAS (VTI) 1.22 (2.5-4.5 cm2) Mitral Valve MV A Velocity 113.0 (40-130 cm/s) E/A Ratio 1.23 MV Mean Gr. 3.40 (<2mmHg) MV PHT 87.0 ms Tricuspid Valve TR P. Velocity 256.00 cm/s RAP Estimate 10.00 mmHg RVSP 36.30 mmHg Left Ventricle The left ventricle is normal size. The left ventricular systolic function is normal. The left ventricular ejection fraction is within the normal range. There is increased LV wall thickness. There is normal LV segmental wall motion. Diastolic function is indeterminate. LVEF is 65%. Right Ventricle The right ventricle is normal size. The right ventricular systolic function is normal. Atria Left atrium is moderately dilated. Right atrium is mildly dilated. There is no Doppler evidence of interatrial shunt. Aortic Valve Aortic valve is moderately thickened. Mild aortic regurgitation. Moderate aortic stenosis is present. ROJAS by continuity question is 1.2 cm. Peak velocity 3.0 m/s. Mean AV gradients 16 mmHg. Max AV gradient 38 mmHg. Mitral Valve Moderate mitral annular calcification. The mitral valve leaflets are mildly thickened. Trace mitral regurgitation. Tricuspid Valve Tricuspid valve is grossly normal in structure and function. Mild tricuspid regurgitation. RVSP is 20-25 mmHg. Trace pulmonic regurgitation. Pulmonic Valve The pulmonary valve is normal in structure. Great Vessels The aortic root is normal in size. IVC is normal in size and collapses >50% with inspiration. Pericardium There is no pericardial effusion. Other Information Study Quality: Fair Conclusion Normal biventricular systolic function. Biatrial dilation. ModerateAS (ROJAS by continuity question is 1.2 cm. Peak velocity 3.0 m/s. Mean AV gradients 16 mmHg. Max AV gradient 38 mmHg). Mild AI, mild TR. Electronically signed by : Cadence Arteaga MD 11/06/2024 12:58:08
--- NOTE | 2024-11-06 05:43 | PC.NURSE ---
pt taken to ct scan at this time.
--- NOTE | 2024-11-06 05:47 | PC.NURSE ---
report given to Sherri MACIEL
--- NOTE | 2024-11-06 05:48 | P.HP_ITS ---
<Statement entered by Silvio Reyes MD - 11/06/24 22:58> Rounded on patient after nurse practitioner. Personally examined and interviewed patient. Agree with exam findings and care plan as documented. History of Present Illness *Admission Date: 11/06/24 *Reason for visit:: Shortness of breath *History of present illness: This is a 64-year-old female with a past medical history of atrial fibrillation well-controlled with metoprolol, on Xarelto, asthma also well-controlled who presents emergency department today with complaints of sudden onset shortness of breath. She reports she was feeling well and in her normal state of health when suddenly at midnight she developed sudden onset shortness of breath. States that she has not had any precipitating or aggravating factors to her brought this on. States that she has been feeling well recently. Denies any prodromal symptoms. She does state that she was taken off her HCTZ medication approximately 2 weeks ago. States that she was originally put on that years ago for blood pressure control. Sees Dr. Dias in the outpatient setting and was taken off of that approximately 2 weeks ago. States that she does have lower extremity edema that she typically does not have. States that every once in a w hile she will have swelling when the weather gets warm but has not ever caused any problems. Upon arrival to the emergency department she was noted to be hypertensive with systolic blood pressure in the 190s in obvious distress. She was placed on BiPAP at the time of arrival to the emergency department. VBG with a pH of 7.16 with a CO2 of 52. BNP of 938. D-dimer 1.13. White blood cell count of 12. Patient was given nitro, magnesium and IV diuretics with drastic improvement in symptoms. At the time of admission she was back to baseline stating that she felt remarkably better. Given her sudden onset shortness of breath and chest x- ray that reveals likely flash pulmonary edema, she will be admitted to the hospitalist service. [facility] Disclaimer: The information contained in this section may have been updated after the patient was seen, as this information can be updated by other users. Social History Smoking Status: Unknown if ever smoked alcohol intake: never current occupational status: other Travel in the last 8 weeks: None Other Medical History Have you received the Pneumonia Vaccine: No Review of Systems Review of Systems Review of systems:: pertinent systems reviewed and negative unless documented below Review of systems (narrative): Negative except for HPI Meds Home Medications and Allergies Home Medications ?Medication ?Instructions ?Recorded ?Confirmed ?Type hydrochlorothiazide 25 mg tablet 25 mg PO 12/09/20 12/19/20 History azithromycin 500 mg tablet 500 mg PO DAILY 5 days #5 tabs 12/23/22 Rx prednisone 20 mg tablet 20 mg PO BID 5 days #10 tabs 12/23/22 Rx New Prescriptions to Start Prescriptions: Allergies Allergy/AdvReac Type Severity Reaction Status Date / Time egg Allergy Unknown Verified 12/19/20 10:15 hydroxyzine (From Vistaril) Allergy Unknown Verified 12/19/20 10:15 shellfish derived Allergy Unknown Verified 12/19/20 10:15 Exam Data for Last 24 hours Vital signs and Labs for Last 24 Hours: Temp Pulse Resp BP Pulse Ox O2 Del Method O2 Flow Rate 98 F 92 H 14 133/83 97 Non-Rebreather 15 11/06/24 04:25 11/06/24 05:00 11/06/24 05:00 11/06/24 05:00 11/06/24 05:00 11/06/24 04:46 11/06/24 04:46 FiO2 35 11/06/24 04:57 Laboratory Results - last 24 hr 11/06/24 04:25: WBC 12.3 H, RBC 4.09 L, Hgb 12.2, Hct 40.5, MCV 99.0, MCH 29.8, MCHC 30.1 L, RDW 15.1, Plt Count 150, MPV 10.7 H, Neut % (Auto) 74.8, Lymph % (Auto) 14.1, [place] % (Auto) 6.8, Eos % (Auto) 2.1, Baso % (Auto) 0.5, Neut # (Auto) 9.2 H, Lymph # (Auto) 1.7, [place] # (Auto) 0.8, Eos # (Auto) 0.3, Baso # (Auto) 0.1, D-Dimer 1.13 H, Sodium 140, Potassium 4.6, Chloride 112 H, Carbon Dioxide 19 L, Anion Gap 13.6, BUN 22 H, Creatinine 0.70, Estimated Creat Clear 44, Estimated GFR 84, Est GFR ( Amer) 102, Glucose 192 H, Calcium 9.6, Magnesium 1.8, Total Bilirubin 1.2, AST 43 H, ALT 23, Alkaline Phosphatase 85, Troponin I < 0.01, NT-Pro-B Natriuret Pep 987 H, Total Protein 7.4, Albumin 3.8, Globulin 3.6 H, Albumin/Globulin Ratio 1.1 11/06/24 04:26: VBG pH 7.16 L, VBG pCO2 52.9 H, VBG pO2 100.1 H, VBG HCO3 18.4 L , VBG Total CO2 20.0 L, VBG O2 Saturation 96.3 H, VBG Base Excess -10.3 L, VBG Lactic Acid 1.1 I & O for Last 24 hours: Intake & Output 11/03/24 11/04/24 11/05/24 11/06/24 23:59 23:59 23:59 23:59 Weight 127.006 kg Constitutional Constitutional: no acute distress *Routine HEENT Exam Head: Present normocephalic Eye: Present EOMI and other (Sclera bloodshot to the right eye with some mild bulging. Patient reports recent eye surgery. Had episode of bleeding from eye this week and was seen in the emergency department for this) ENT: Present mucous membranes moist *Routine Neck Exam Neck: Present supple; Absent lymphadenopathy *Routine Respiratory Exam Respiratory: Present CTA bilaterally *Routine Cardiovascular Exam Cardiovascular: Present RRR *Routine Abdominal Exam Abdominal: Present soft and normoactive bowel sounds; Absent tenderness *Routine Rectal Exam Rectal:: deferred *Routine Genitalia Exam Genitalia:: deferred *Routine Extremities Exam Extremities: Present edema (+2 bilateral lower extremity pitting); Absent cyanosis or clubbing *Routine Skin Exam Skin: Present warm; Absent rash *Routine Neurological Exam Neurological: Present alert and oriented X3 Assessment and Plan *Assessment and plan (1) Volume overload: Status: Acute Category: Medical Code(s): E87.70 - Fluid overload, unspecified (2) Flash pulmonary edema: Status: Acute Category: Medical Code(s): J81.0 - Acute pulmonary edema (3) Acute hypoxic respiratory failure: Status: Acute Category: Medical Code(s): J96.01 - Acute respiratory failure with hypoxia (4) Atrial fibrillation: Status: Acute Category: Medical Code(s): I48.91 - Unspecified atrial fibrillation Plan #Acute respiratory failure with hypoxia #Pulmonary edema Patient with flash pulmonary edema noted on chest imaging. Elevated BNP of 900. Denies any prior history of this. Required BiPAP for rescue breathing given increased work of breathing. Had drastic improvement in symptoms after placement. Received nitro, mag and Lasix in the emergency department Continue twice daily Lasix dosing Daily weights Strict intake and output Low-sodium diet Will obtain echocardiogram in a.m. Is tolerating oxygen per nasal cannula at this time #Elevated D-dimer Likely in the setting of acute stress but given sudden onset, will obtain CT scan to rule out PE although suspicion is low given Xarelto usage #Atrial fibrillation, paroxysmal Currently in normal sinus rhythm. Patient states that she very seldom has issues with her atrial fibrillation. Is on metoprolol, will continue. Continue Xarelto #Acidosis VBG with a pH of 7.16 and a CO2 of 52. Likely metabolic in nature. Patient has been on BiPAP now for approximately 2 hours. Will obtain repeat VBG this a.m. #Hyperglycemia No known history of diabetes. Will obtain A1c
[2024-11-06] MEDS: 0.9 % SODIUM CHLORIDE 50 ML VIAL IV (06:00)
[2024-11-06] MEDS: IOPAMIDOL-370 (76%);100ML BOTTLE 80 ML IV (06:00)
[2024-11-06] MEDS: SODIUM CHLORIDE 0.9% 10ML SYR (RAD ONLY) 10 ML IV (06:00)
[2024-11-06 06:07] LABS: Coronavirus 19, PCR Not Detected (NotDetected); Influenza A, PCR Not Detected (NotDetected); Influenza B, PCR Not Detected (NotDetected)
--- NOTE | 2024-11-06 06:17 | PC.NURSE ---
Patient arrived to floor via stretcher from ED at 06:15.
[2024-11-06 06:32] LABS: Hemoglobin A1C 5.2 % (4.0-6.0)
[2024-11-06 06:34] LABS: Procalcitonin 0.074 ng/mL (0.0-2.0)
[2024-11-06 07:40] LABS: Chol/HDL Ratio 2.8 (1-3.5); Cholesterol 113 mg/dl (140-200); HDL Cholesterol 41 mg/dl (40-60); Triglycerides 88 mg/dl (30-150); VLDL Cholesterol 18 mg/dL (0-40)
[2024-11-06 07:51] LABS: Direct LDL Cholesterol 55.14 mg/dL (100-129)
[2024-11-06 08:00] LABS: Lactate Venous 1.1 mmol/L (0.4-2.0); VBG Base Excess -4.2 mmol/L (-2.4-2.3); VBG HCO3 22.3 mmol/L (23-30); VBG Oxygen Saturation 82.5 % (50-70); VBG PCO2 46.8 mmol/L (35-51); VBG PO2 43.1 mmol/L (28-40); VBG Total CO2 23.7 mmol/L (23-27)
[2024-11-06] MEDS: SODIUM CHLORIDE 3% 15ML NEB 3 ML IH (08:18)
[2024-11-06] MEDS: AZITHROMYCIN 500 MG in 0.9 % SODIUM CHLORIDE 250 ML 250 MG IV (09:06)
--- NOTE | 2024-11-06 09:32 | PC.NURSE ---
pt weaned from 3LNC to RA.
[2024-11-06 11:14] LABS: Troponin I 0.13 ng/ml (0.00-0.034)
--- NOTE | 2024-11-06 11:15 | EXP.CARD.CON ---
History of Present Illness History of Present Illness Consult date: 11/06/24 Requesting physician: Silvio Reyes Consult reason: shortness of breath Chief complaint: SOA History of present illness: This is a 64-year-old white female who presented to the emergency department complaints of shortness of breath. She states that she went to bed around 10:30 PM last night and was in her normal state of health. She woke up at midnight with profound shortness of breath. She states that she just could not catch her breath. She states that this was worse when she was up exerting herself or lying flat in the bed. The patient states that this was severe. She denied any chest pain or pressure. She denied any lower extremity edema. She denies any fever, chills, nausea, vomiting, diarrhea. The patient denies any cough or fever. She does report a history of asthma but this was completely different. She also is treated for paroxysmal atrial fibrillation and sees Dr. Zhu. She states that she recently had a procedure on her eye and her blood pressure was low at that time so her HCTZ has been stopped. [facility] Disclaimer: The information contained in this section may have been updated after the patient was seen, as this information can be updated by other users. Medical History (Updated 11/06/24 @ 11:19 by Scarlett Leahy APRN) Flash pulmonary edema Volume overload Pleural effusion Hyperlipidemia Atrial fibrillation Hypertension Social History (Updated 11/06/24 @ 06:36 by Christy Grant RN) Smoking Status: Never smoker alcohol intake: never current occupational status: other Travel in the last 8 weeks: None Contact w/someone who lives/traveled outside [place] past 30 days?: No Exposure to someone with infectious disease in past 14 days?: No Do you have a fever (greater than 100.4 F or 38 C)?: No Have you tested positive for COVID-19: No Exposed to someone with COVID-19 in past 14 days?: No Do you have a sore throat?: No Do you have a cough?: No Do you have any weakness?: No Are you experiencing any nausea/vomitting?: No Do you have any diarrhea?: No Are you experiencing any unusual bleeding?: No Do you have any muscle aches/pain?: No Do you have any abdominal pain?: No Are you experiencing loss of taste or smell?: No Review of Systems Review of Systems Review of systems:: pertinent systems reviewed and negative unless documented below Constitutional Constitutional: Reports system reviewed and no additional complaints, except as documented Eyes Eyes: Reports system reviewed and no additional complaints, except as documented ENT Ears, Nose, Mouth, and Throat: Reports system reviewed and no additional complaints, except as documented *Cardiovascular Cardiovascular: Reports system reviewed and no additional complaints, except as documented, Denies chest pain, Reports dyspnea, Reports dyspnea on exertion, Denies leg edema and Reports orthopnea *Respiratory Respiratory: Reports system reviewed and no additional complaints, except as documented, Reports dyspnea and Reports dyspnea on exertion *Gastrointestinal Gastrointestinal: Reports system reviewed and no additional complaints, except as documented *Genitourinary Genitourinary: Reports system reviewed and no additional complaints, except as documented *Musculoskeletal Musculoskeletal: Reports system reviewed and no additional complaints, except as documented Integumentary/Breasts Skin/Breast: Reports system reviewed and no additional complaints, except as documented *Neurologic Neurologic: Reports system reviewed and no additional complaints, except as documented Psychiatric Psychiatric: Reports system reviewed and no additional complaints, except as documented Endocrine Endocrine: Reports system reviewed and no additional complaints, except as documented Hematologic/Lymphatic Hematologic/Lymphatic: Reports system reviewed and no additional complaints, except as documented Allergic/Immunologic Allergic/Immunologic: Reports system reviewed and no additional complaints, except as documented Exam Data for Last 24 hours Vital signs and Labs for Last 24 Hours: Temp Pulse Resp BP Pulse Ox O2 Del Method O2 Flow Rate 98.1 F 74 15 95/53 L 97 Room Air 2 11/06/24 08:00 11/06/24 08:19 11/06/24 08:19 11/06/24 08:00 11/06/24 08:20 11/06/24 09:00 11/06/24 08:20 FiO2 35 11/06/24 04:57 Laboratory Results - last 24 hr 11/06/24 04:25: WBC 12.3 H, RBC 4.09 L, Hgb 12.2, Hct 40.5, MCV 99.0, MCH 29.8, MCHC 30.1 L, RDW 15.1, Plt Count 150, MPV 10.7 H, Neut % (Auto) 74.8, Lymph % (Auto) 14.1, [place] % (Auto) 6.8, Eos % (Auto) 2.1, Baso % (Auto) 0.5, Neut # (Auto) 9.2 H, Lymph # (Auto) 1.7, [place] # (Auto) 0.8, Eos # (Auto) 0.3, Baso # (Auto) 0.1, D-Dimer 1.13 H, Sodium 140, Potassium 4.6, Chloride 112 H, Carbon Dioxide 19 L, Anion Gap 13.6, BUN 22 H, Creatinine 0.70, Estimated Creat Clear 44, Estimated GFR 84, Est GFR ( Amer) 102, Glucose 192 H, Hemoglobin A1c 5.2, Calcium 9.6, Magnesium 1.8, Total Bilirubin 1.2, AST 43 H, ALT 23, Alkaline Phosphatase 85, Troponin I < 0.01, NT-Pro-B Natriuret Pep 987 H, Total Protein 7.4, Albumin 3.8, Globulin 3.6 H, Albumin/Globulin Ratio 1.1, Triglycerides 88, Cholesterol 113 L, LDL Cholesterol Direct 55.14 L, VLDL Cholesterol 18, HDL Cholesterol 41, Cholesterol/HDL Ratio 2.8, Procalcitonin 0.074 11/06/24 04:26: VBG pH 7.16 L, VBG pCO2 52.9 H, VBG pO2 100.1 H, VBG HCO3 18.4 L, VBG Total CO2 20.0 L, VBG O2 Saturation 96.3 H, VBG Base Excess -10.3 L, VBG Lactic Acid 1.1 11/06/24 04:50: SARS-CoV-2 (PCR) Not detected, Influenza A Untype (PCR) Not detected, Influenza Type B (PCR) Not detected 11/06/24 07:49: Troponin I 0.10 H 11/06/24 08:00: VBG pH 7.30 L, VBG pCO2 46.8, VBG pO2 43.1 H, VBG HCO3 22.3 L, VBG Total CO2 23.7, VBG O2 Saturation 82.5 H, VBG Base Excess -4.2 L, VBG Lactic Acid 1.1 I & O for Last 24 hours: Intake & Output 11/03/24 11/04/24 11/05/24 11/06/24 23:59 23:59 23:59 23:59 Intake Total 240 / 240 Output Total 2600 / 2600 Balance -2360 / -2360 Weight 281 lb 1.6 oz Constitutional Constitutional: no acute distress and morbidly obese *Routine HEENT Exam Head: Present normocephalic and atraumatic ENT: Present mucous membranes moist *Routine Neck Exam Neck: Present supple, full ROM and normal carotid upstroke; Absent JVD, carotid bruit or lymphadenopathy *Routine Respiratory Exam Respiratory: Present CTA bilaterally, normal respiratory effort, able to speak in complete sentences and symmetric chest movement *Routine Cardiovascular Exam Cardiovascular: Present RRR, Normal S1 and Normal S2; Absent murmur or gallop *Routine Abdominal Exam Abdominal: Present soft and normoactive bowel sounds; Absent tenderness, distended or organomegaly *Routine Extremities Exam Extremities: Present full ROM, pulses intact and normal capillary refill; Absent cyanosis, clubbing or edema *Routine Skin Exam Skin: Present intact and warm; Absent erythema *Routine Neurological Exam Neurological: Present alert, oriented X3 and CN II-XII intact; Absent sensory deficit or motor deficit Routine Psychiatric Exam Psychiatric: Present normal affect Meds Home Medications and Allergies Home Medications ?Medication ?Instructions ?Recorded ?Confirmed ?Type brimonidine 0.2 %-timolol 0.5 % 1 drp ophthalmic (eye) BID 11/06/24 11/06/24 History eye drops (Combigan) flecainide 100 mg tablet 100 mg PO BID 11/06/24 11/06/24 History fluticasone fur. 100 mcg-umeclid 1 inh inhalation DAILY 11/06/24 11/06/24 History 62.5 mcg-vilant 25 mcg inhalat.powder (Trelegy Ellipta) loteprednol etabonate 0.5 % eye 1 drp ophthalmic (eye) BID 11/06/24 11/06/24 History drops,suspension methazolamide 50 mg tablet 50 mg PO BID 11/06/24 11/06/24 History metoprolol tartrate 50 mg tablet 50 mg PO DAILY 11/06/24 11/06/24 History neomycin 3.5 mg/g-polymyxin B 4 applic Eye-Left BID PRN eye 11/06/24 11/06/24 History 10,000 unit/g-dexameth 0.1 % eye surgery oint netarsudil 0.02 % eye drops 1 drp ophthalmic (eye) HS 11/06/24 11/06/24 History (Rhopressa) peg 400-propylene glycol (PF) 0.4 1 drp ophthalmic (eye) QID PRN Eye 11/06/24 11/06/24 History %-0.3 % eye drops in a dropperette Irritation (Systane (PF)) prednisolone acetate 1 % eye 1 drp ophthalmic (eye) QID 11/06/24 11/06/24 History drops,suspension rivaroxaban 20 mg tablet (Xarelto) 20 mg PO DAILY 11/06/24 11/06/24 History rosuvastatin 10 mg tablet 10 mg PO HS 11/06/24 11/06/24 History valacyclovir 1 gram tablet 1,000 mg PO ONCE 11/06/24 11/06/24 History New Prescriptions to Start Prescriptions: Allergies Allergy/AdvReac Type Severity Reaction Status Date / Time egg Allergy Unknown Verified 12/19/20 10:15 hydroxyzine (From Vistaril) Allergy Unknown Verified 12/19/20 10:15 shellfish derived Allergy Unknown Verified 12/19/20 10:15 Assessment and Plan *Assessment and plan (1) Flash pulmonary edema: Status: Acute Category: Medical Code(s): J81.0 - Acute pulmonary edema (2) Volume overload: Status: Acute Qualifiers: Hypervolemia type: other Qualified Code(s): E87.79 - Other fluid overload Category: Medical Code(s): E87.70 - Fluid overload, unspecified (3) Atrial fibrillation: Status: Acute Qualifiers: Atrial fibrillation type: paroxysmal Qualified Code(s): I48.0 - Paroxysmal atrial fibrillation Category: Medical Code(s): I48.91 - Unspecified atrial fibrillation (4) Hyperlipidemia: Status: Acute Qualifiers: Hyperlipidemia type: mixed hyperlipidemia Qualified Code(s): E78.2 - Mixed hyperlipidemia Category: Medical Code(s): E78.5 - Hyperlipidemia, unspecified (5) Pleural effusion: Status: Acute Category: Medical Code(s): J90 - Pleural effusion, not elsewhere classified Plan Plan: 1. Patient was admitted to the hospital with flash pulmonary edema. Will obtain an echocardiogram to evaluate her LV function. 2. The patient states that she feels much better after getting Lasix. Will start her on Lasix 40 mg IV twice daily for continued diuresis. 3. She denies any chest pain or pressure. Her initial troponin was negative and her second troponin was up to 0.10. This is most likely a type II non-STEMI from her flash pulmonary edema. 4. The patient does report having a recent stress test approximately 1 year ago that was normal. She sees Dr. Zhu on a regular basis. However, she would benefit from an outpatient ischemic evaluation once she is discharged from the hospital due to the elevated troponin as long as her EF is normal on echocardiogram. 5. The patient does have paroxysmal atrial fibrillation. She is currently in sinus rhythm. She is on flecainide and metoprolol for suppression. Continue these medications. 6. The patient is on Xarelto for long-term anticoagulation. We do recommend continuing this medication. 7. Her blood pressure is acceptable. It is on the low side. 8. Will have to hold off on Entresto at this time due to her low blood pressure. This will most likely be able to be started on an outpatient basis. 9. When she is more euvolemic consider Jardiance or Farxiga. 10. Start aspirin 81 mg daily. 11. Her LDL goal is less than 55. Her LDL is 55. She is on a statin. 12. Further recommendations will be made pending the patient's response to treatment. Thank you for the opportunity to help participate in the care of this patient. Our recommendations and orders are per Dr. Arteaga.
[2024-11-06] MEDS: METOPROLOL TARTRATE 50MG TABLET 50 MG PO (11:53)
[2024-11-06] MEDS: ASPIRIN EC 81MG TABLET 81 MG PO (11:53)
[2024-11-06] MEDS: FLECAINIDE 50MG TABLET 100 MG PO (11:54)
--- NOTE | 2024-11-06 13:29 | P.DS_ITS ---
General Admission date:: 11/06/24 Discharge date: 11/06/24 HPI HPI HPI: This is a 64-year-old female with a past medical history of atrial fibrillation well-controlled with metoprolol, on Xarelto, asthma also well-controlled who presents emergency department today with complaints of sudden onset shortness of breath. She reports she was feeling well and in her normal state of health when suddenly at midnight she developed sudden onset shortness of breath. States that she has not had any precipitating or aggravating factors to her brought this on. States that she has been feeling well recently. Denies any prodromal symptoms. She does state that she was taken off her HCTZ medication approximately 2 weeks ago. States that she was originally put on that years ago for blood pressure control. Sees Dr. Dias in the outpatient setting and was taken off of that approximately 2 weeks ago. States that she does have lower extremity edema that she typically does not have. States that every once in a while she will have swelling when the weather gets warm but has not ever caused any problems. Upon arrival to the emergency department she was noted to be hypertensive with systolic blood pressure in the 190s in obvious distress. She was placed on BiPAP at the time of arrival to the emergency department. VBG with a pH of 7.16 with a CO2 of 52. BNP of 938. D-dimer 1.13. White blood cell count of 12. Patient was given nitro, magnesium and IV diuretics with drastic improvement in symptoms. At the time of admission she was back to baseline stating that she felt remarkably better. Given her sudden onset shortness of breath and chest x- ray that reveals likely flash pulmonary edema, she will be admitted to the hospitalist service. Hospital Course Hospital Course Hospital Course: 64-year-old female who presented with acute respiratory distress. Concern for flash pulmonary edema. Initially required BiPAP. Showed improvement. Was diuresed with good output of 1-1/2 L. On room air and feeling back to baseline by morning. Stable to discharge home with follow-up with cardiology. Problems addressed as follows: #Acute respiratory failure with hypoxia #Pulmonary edema Paroxysmal A-fib Patient with flash pulmonary edema noted on chest imaging. Elevated BNP of 900. Denies any prior history of this. Required BiPAP for rescue breathing given increased work of breathing. Had drastic improvement in symptoms after placement. Received nitro, mag and Lasix in the emergency department. But 1- 1/2 L. Was continued on diuretics twice daily. Cardiology consulted to evaluate. Echo obtained. Patient has paroxysmal A-fib. Currently in sinus rhythm. Continue her flecainide and metoprolol. Already on Xarelto for long- term anticoagulation, plan to continue. Given her stability, will discharge home with further management as an outpatient. Blood gas showed improvement with pH of 7.3 after use of BiPAP. Stable on room air. Kidney function electrolytes normal. Initiate aspirin 81 mg daily. Will continue Lasix 40 mg daily #Elevated D-dimer Likely in the setting of acute stress but given sudden onset, CT negative for PE. #Acidosis VBG with a pH of 7.16 and a CO2 of 52. Respiratory in nature. Improved to 7.3 after short course of BiPAP for 2 hours. Mentating normally. #Hyperglycemia No known history of diabetes. A1c 5.2. No indication for diabetes medications Exam Data for Last 24 hours Vital signs and Labs for Last 24 Hours: Temp Pulse Resp BP Pulse Ox O2 Del Method O2 Flow Rate 98 F 72 16 154/82 H 96 Room Air 2 11/06/24 12:00 11/06/24 12:00 11/06/24 12:00 11/06/24 12:00 11/06/24 12:00 11/06/24 13:00 11/06/24 08:20 FiO2 35 11/06/24 04:57 Laboratory Results - last 24 hr 11/06/24 04:25: WBC 12.3 H, RBC 4.09 L, Hgb 12.2, Hct 40.5, MCV 99.0, MCH 29.8, MCHC 30.1 L, RDW 15.1, Plt Count 150, MPV 10.7 H, Neut % (Auto) 74.8, Lymph % (Auto) 14.1, [place] % (Auto) 6.8, Eos % (Auto) 2.1, Baso % (Auto) 0.5, Neut # (Auto) 9.2 H, Lymph # (Auto) 1.7, [place] # (Auto) 0.8, Eos # (Auto) 0.3, Baso # (Auto) 0.1, D-Dimer 1.13 H, Sodium 140, Potassium 4.6, Chloride 112 H, Carbon Dioxide 19 L, Anion Gap 13.6, BUN 22 H, Creatinine 0.70, Estimated Creat Clear 44, Estimated GFR 84, Est GFR ( Amer) 102, Glucose 192 H, Hemoglobin A1c 5.2, Calcium 9.6, Magnesium 1.8, Total Bilirubin 1.2, AST 43 H, ALT 23, Alkaline Phosphatase 85, Troponin I < 0.01, NT-Pro-B Natriuret Pep 987 H, Total Protein 7.4, Albumin 3.8, Globulin 3.6 H, Albumin/Globulin Ratio 1.1, Triglycerides 88, Cholesterol 113 L, LDL Cholesterol Direct 55.14 L, VLDL Cholesterol 18, HDL Cholesterol 41, Cholesterol/HDL Ratio 2.8, Procalcitonin 0.074 11/06/24 04:26: VBG pH 7.16 L, VBG pCO2 52.9 H, VBG pO2 100.1 H, VBG HCO3 18.4 L , VBG Total CO2 20.0 L, VBG O2 Saturation 96.3 H, VBG Base Excess -10.3 L, VBG Lactic Acid 1.1 11/06/24 04:50: SARS-CoV-2 (PCR) Not detected, Influenza A Untype (PCR) Not detected, Influenza Type B (PCR) Not detected 11/06/24 07:49: Troponin I 0.10 H 11/06/24 08:00: VBG pH 7.30 L, VBG pCO2 46.8, VBG pO2 43.1 H, VBG HCO3 22.3 L, VBG Total CO2 23.7, VBG O2 Saturation 82.5 H, VBG Base Excess -4.2 L, VBG Lactic Acid 1.1 11/06/24 10:46: Troponin I 0.13 H I & O for Last 24 hours: Intake & Output 11/03/24 11/04/24 11/05/24 11/06/24 23:59 23:59 23:59 23:59 Intake Total 240 / 240 Output Total 2600 / 2600 Balance -2360 / -2360 Weight 127 kg Constitutional Constitutional: no acute distress, morbidly obese, chronically ill appearing and cooperative *Routine HEENT Exam Head: Present normocephalic and atraumatic Eye: Present EOMI ENT: Present mucous membranes moist *Routine Neck Exam Neck: Present supple, full ROM and normal carotid upstroke; Absent JVD, carotid bruit or lymphadenopathy *Routine Respiratory Exam Respiratory: Present CTA bilaterally, normal respiratory effort, able to speak in complete sentences and symmetric chest movement; Absent rhonchi, wheezes or crackles *Routine Cardiovascular Exam Cardiovascular: Present RRR, Normal S1 and Normal S2; Absent murmur or gallop *Routine Abdominal Exam Abdominal: Present soft and normoactive bowel sounds; Absent tenderness, distended or organomegaly *Routine Rectal Exam Patient deferred: visual exam *Routine Exam Patient deferred: external exam *Routine Extremities Exam Extremities: Present full ROM, pulses intact and normal capillary refill; Absent cyanosis, clubbing or edema *Routine Skin Exam Skin: Present intact and warm; Absent erythema *Routine Neurological Exam Neurological: Present alert, oriented X3 and CN II-XII intact; Absent sensory deficit or motor deficit Routine Psychiatric Exam Psychiatric: Present normal affect Results Data Completed and Pending Labs on day of discharge: Labs from last 24 hours 11/06/24 11/06/24 11/06/24 10:46 08:00 07:49 WBC RBC Hgb Hct MCV MCH MCHC RDW Plt Count MPV Neut % (Auto) Lymph % (Auto) [place] % (Auto) Eos % (Auto) Baso % (Auto) Neut # (Auto) Lymph # (Auto) [place] # (Auto) Eos # (Auto) Baso # (Auto) D-Dimer VBG pH 7.30 L VBG pCO2 46.8 VBG pO2 43.1 H VBG HCO3 22.3 L VBG Total CO2 23.7 VBG O2 Saturation 82.5 H VBG Base Excess -4.2 L VBG Lactic Acid 1.1 Sodium Potassium Chloride Carbon Dioxide Anion Gap BUN Creatinine Estimated Creat Clear Estimated GFR Est GFR ( Amer) Glucose Hemoglobin A1c Calcium Magnesium Total Bilirubin AST ALT Alkaline Phosphatase Troponin I 0.13 H 0.10 H NT-Pro-B Natriuret Pep Total Protein Albumin Globulin Albumin/Globulin Ratio Triglycerides Cholesterol LDL Cholesterol Direct VLDL Cholesterol HDL Cholesterol Cholesterol/HDL Ratio Procalcitonin SARS-CoV-2 (PCR) Influenza A Untype (PCR) Influenza Type B (PCR) 11/06/24 11/06/24 11/06/24 04:50 04:26 04:25 WBC 12.3 H RBC 4.09 L Hgb 12.2 Hct 40.5 MCV 99.0 MCH 29.8 MCHC 30.1 L RDW 15.1 Plt Count 150 MPV 10.7 H Neut % (Auto) 74.8 Lymph % (Auto) 14.1 [place] % (Auto) 6.8 Eos % (Auto) 2.1 Baso % (Auto) 0.5 Neut # (Auto) 9.2 H Lymph # (Auto) 1.7 [place] # (Auto) 0.8 Eos # (Auto) 0.3 Baso # (Auto) 0.1 D-Dimer 1.13 H VBG pH 7.16 L VBG pCO2 52.9 H VBG pO2 100.1 H VBG HCO3 18.4 L VBG Total CO2 20.0 L VBG O2 Saturation 96.3 H VBG Base Excess -10.3 L VBG Lactic Acid 1.1 Sodium 140 Potassium 4.6 Chloride 112 H Carbon Dioxide 19 L Anion Gap 13.6 BUN 22 H Creatinine 0.70 Estimated Creat Clear 44 Estimated GFR 84 Est GFR ( Amer) 102 Glucose 192 H Hemoglobin A1c 5.2 Calcium 9.6 Magnesium 1.8 Total Bilirubin 1.2 AST 43 H ALT 23 Alkaline Phosphatase 85 Troponin I < 0.01 NT-Pro-B Natriuret Pep 987 H Total Protein 7.4 Albumin 3.8 Globulin 3.6 H Albumin/Globulin Ratio 1.1 Triglycerides 88 Cholesterol 113 L LDL Cholesterol Direct 55.14 L VLDL Cholesterol 18 HDL Cholesterol 41 Cholesterol/HDL Ratio 2.8 Procalcitonin 0.074 SARS-CoV-2 (PCR) Not detected Influenza A Untype (PCR) Not detected Influenza Type B (PCR) Not detected DS: Diagnosis Discharge Diagnosis (1) Flash pulmonary edema: Status: Acute Code(s): J81.0 - Acute pulmonary edema (2) Volume overload: Status: Acute Code(s): E87.70 - Fluid overload, unspecified Qualifiers: Hypervolemia type: other Qualified Code(s): E87.79 - Other fluid o verload (3) Atrial fibrillation: Status: Acute Code(s): I48.91 - Unspecified atrial fibrillation Qualifiers: Atrial fibrillation type: paroxysmal Qualified Code(s): I48.0 - Paroxysmal atrial fibrillation (4) Hyperlipidemia: Status: Acute Code(s): E78.5 - Hyperlipidemia, unspecified Qualifiers: Hyperlipidemia type: mixed hyperlipidemia Qualified Code(s): E78.2 - Mixed hyperlipidemia (5) Pleural effusion: Status: Acute Code(s): J90 - Pleural effusion, not elsewhere classified (6) Morbid obesity with BMI of 50.0-59.9, adult: Status: Chronic Code(s): E66.01 - Morbid (severe) obesity due to excess calories; Z68.43 - Body mass index [BMI] 50.0-59.9, adult Meds Home Medications and Allergies Home Medications ?Medication ?Instructions ?Recorded ?Confirmed ?Type aspirin 81 mg tablet,delayed 81 mg PO DAILY 30 days #30 tabs 11/06/24 Rx release brimonidine 0.2 %-timolol 0.5 % 1 drp ophthalmic (eye) BID 11/06/24 11/06/24 History eye drops (Combigan) flecainide 100 mg tablet 100 mg PO BID 11/06/24 11/06/24 History fluticasone fur. 100 mcg-umeclid 1 inh inhalation DAILY 11/06/24 11/06/24 History 62.5 mcg-vilant 25 mcg inhalat.powder (Trelegy Ellipta) furosemide 40 mg tablet (Lasix) 40 mg PO DAILY #30 tabs 11/06/24 Rx loteprednol etabonate 0.5 % eye 1 drp ophthalmic (eye) BID 11/06/24 11/06/24 History drops,suspension methazolamide 50 mg tablet 50 mg PO BID 11/06/24 11/06/24 History metoprolol tartrate 50 mg tablet 50 mg PO DAILY 11/06/24 11/06/24 History neomycin 3.5 mg/g-polymyxin B 4 applic Eye-Left BID PRN eye 11/06/24 11/06/24 History 10,000 unit/g-dexameth 0.1 % eye surgery oint netarsudil 0.02 % eye drops 1 drp ophthalmic (eye) HS 11/06/24 11/06/24 History (Rhopressa) peg 400-propylene glycol (PF) 0.4 1 drp ophthalmic (eye) QID PRN Eye 11/06/24 11/06/24 History %-0.3 % eye drops in a dropperette Irritation (Systane (PF)) prednisolone acetate 1 % eye 1 drp ophthalmic (eye) QID 11/06/24 11/06/24 History drops,suspension rivaroxaban 20 mg tablet (Xarelto) 20 mg PO DAILY 11/06/24 11/06/24 History rosuvastatin 10 mg tablet 10 mg PO HS 11/06/24 11/06/24 History valacyclovir 1 gram tablet 1,000 mg PO ONCE 11/06/24 11/06/24 History New Prescriptions to Start Prescriptions: Silvio Hernandez furosemide [Lasix] Silvio Reyes Allergies Allergy/AdvReac Type Severity Reaction Status Date / Time egg Allergy Unknown Verified 12/19/20 10:15 hydroxyzine (From Vistaril) Allergy Unknown Verified 12/19/20 10:15 shellfish derived Allergy Unknown Verified 12/19/20 10:15 Discharge Plan Disposition Patient Disposition: Home, Self-Care Condition: Fair Follow up Plan Follow up with: Owen Marsh MD [Staff Physician] - 11/16/24 11:00 am Mikel Arteaga MD [Staff Physician] - 11/17/24 1:15 pm Prescriptions/Medication Reconciliation: New aspirin 81 mg Tablet,Delayed Release (Dr/Ec) 81 mg PO DAILY 30 Days Qty: 30 0RF furosemide [Lasix] 40 mg tablet 40 mg PO DAILY Qty: 30 0RF Continued flecainide 100 mg tablet 100 mg PO BID Patient Comments: TAKE 1 TABLET BY MOUTH EVERY 12 HOURS FOR 10 DAYS valacyclovir 1 gram tablet 1,000 mg PO ONCE Rx Instructions: LAST DOSE 11/08/24 methazolamide 50 mg tablet 50 mg PO BID metoprolol tartrate 50 mg tablet 50 mg PO DAILY rosuvastatin 10 mg tablet 10 mg PO HS Patient Comments: TAKE 1 TABLET BY MOUTH EVERY DAY Xarelto 20 mg tablet 20 mg PO DAILY Trelegy Ellipta 100-62.5-25 mcg Blister With Device 1 inh INHALATION DAILY prednisolone acetate 1 % drops,suspension 1 drp ophthalmic (eye) QID Patient Comments: SHAKE LIQUID AND INSTILL 1 DROP IN RIGHT EYE FOUR TIMES DAILY AFTER SURGERY Rx Instructions: left eye loteprednol etabonate 0.5 % drops,suspension 1 drp ophthalmic (eye) BID Patient Comments: SHAKE LIQUID AND INSTILL 1 DROP IN RIGHT EYE THREE TIMES DAILY Rx Instructions: right eye neomycin-polymyxin B-dexameth 3.5 mg/g-10,000 unit/g-0.1 % ointment 4 applic Eye-Left BID PRN (Reason: eye surgery) Systane (PF) 0.4-0.3 % Dropperette 1 drp OPHTHALMIC (EYE) QID PRN (Reason: Eye Irritation) Rx Instructions: both eyes brimonidine-timolol [Combigan] 0.2-0.5 % Drops 1 drp OPHTHALMIC (EYE) BID Rx Instructions: right eye Rhopressa 0.02 % Drops 1 drp OPHTHALMIC (EYE) HS Rx Instructions: right eye Problem Reconciliation Problems Reviewed?: Yes Patient Discharge Instructions ACTIVITY: Continue current activity DIET: continue same diet Patient Instructions: Adult Respiratory Distress Syndrome, Two Gram Sodium Diet Print Language: [place] Providers Primary Care Provider: Provider,Referral Admit Provider: Silvio Reyes Attending Provider: Silvio Reyes
--- NOTE | 2024-11-09 12:50 | SW/DCPLANNER ---
Spoke with patient on the phone. Patient stated that she is doing well. Patient stated that she is aware of her upcoming appointments. Patient stated that she was able to get her new medicine from clinic pharmacy and that they brought it to her before she was discharged. Patient stated that she has no concerns or questions at this time. Baron Napier
== END 2024-11-06 14:51 | disposition home or self-care (01) ==
LOC: ER 05:21 → 2ND 05:43
PROVIDERS: Nurse Practitioner Acute Care; Admitting Provider Internal Medicine Adolescent Medicine; Emergency Provider Emergency Medicine; Visit Provider Internal Medicine Adolescent Medicine
DX: J96.01 Acute respiratory failure with hypoxia (principal); J96.02 Acute respiratory failure with hypercapnia; J81.0 Acute pulmonary edema; I48.0 Paroxysmal atrial fibrillation; I10 Essential (primary) hypertension; J90 Pleural effusion, not elsewhere classified; R73.9 Hyperglycemia, unspecified; J45.909 Unspecified asthma, uncomplicated; E66.01 Morbid (severe) obesity due to excess calories; Z68.43 Body mass index [BMI] 50.0-59.9, adult; Z79.01 Long term (current) use of anticoagulants; Z79.899 Other long term (current) drug therapy; Z91.012 Allergy to eggs; Z91.013 Allergy to seafood; Z88.8 Allergy status to other drugs, medicaments and biological substances
CPT/HCPCS: 94660; 36415; 51702; 71045; 71275; 80053; 80061; 82803; 83036; 83735; 83880; 84145; 84484; 85025; 85378; 87040; 87636; 93005; 93306; 99285; 99291; G0378; J0456; J0696; J1938; J3475; J7620; Q9967

== ENCOUNTER 2025-07-13 15:16 | Outpatient (CLI) | payer BC, MEDICARE, SELFPAY ==
--- NOTE | 2025-07-13 15:15 | CA_ITS ---
APPROVED REPORT EXAM: Comprehensive 2D, Doppler, and color-flow Echocardiogram Hair Spring Cutter: Rabia Zimmer RVT Ht: 5 ft 2 in Wt: 278lbs BSA: 2.20 BP: 104/59 mmHg Indications: SHORTNESS OF BREATH,AORTIC STENOSIS 2D Dimensions IVSd 1.79 cm F: 0.6-1.0 LVEF (Visual) 87.90 % PWd 0.99 cm F: 0.6 - 1.0 LVDd 5.14 cm F: 3.9 - 5.3 LVDs 2.15 cm F: 2.2 - 3.5 M-Mode Dimensions LA Diam 3.37 cm (1.9-4.0) LV Diastology E Decel Time 230 (160-240 msec) E/A Ratio 2.6 Aortic Valve ROJAS Index 0.67 cm2/m2 AoV Peak Joaquín. 284.0 (50-130 cm/s) AO Peak GR. 32.40 mmHg AO Mean GR. 17.80 (<5 mmHg) AO VTI 70.2 (18-25 cm) ROJAS (VTI) 1.51 (2.5-4.5 cm2) Mitral Valve MV E Max Joaquín. 176.0 (40-130 cm/s) MV A Velocity 67.0 (40-130 cm/s) E/A Ratio 2.64 MV Mean Gr. 6.00 (<2mmHg) MV PHT 67.0 ms Pulmonary Valve PV Peak Velocity 81.0 (50-150 cm/s) Tricuspid Valve TR P. Velocity 297.00 cm/s RAP Estimate 8.00 mmHg RVSP 43.20 mmHg Left Ventricle The left ventricle is normal size. Left ventricular systolic function is normal. The left ventricular ejection fraction is within the normal range. There is increased left ventricular wall thickness. There is normal LV segmental wall motion. The left ventricular diastolic function is indeterminate. LVEF is 55% Right Ventricle The right ventricle is mildly dilated. The right ventricular systolic function is normal. Atria Left atrium is mildly dilated. Right atrium is mildly dilated. There is no color Doppler evidence of interatrial shunt. Aortic Valve The aortic valve is moderately thickened. Moderate aortic stenosis is present. ROJAS by continuity equation is 1.3 cm2. Mean AV gradient is 17 mmHg. Max AV gradient is 36 mmHg. Peak velocity is 3.0 m/s. Trace aortic regurgitation is present. Mitral Valve Moderate to severe mitral annular calcification is present. The mitral valve is mildly thickened. Mild mitral valve stenosis is present. Mean MV gradient is 6 mmHg (HR 56 bpm). Mild mitral regurgitation is present. Tricuspid Valve The tricuspid valve leaflets are thin and pliable. Trace tricuspid regurgitation. There is insufficient TR jet to estimate RVSP. Pulmonic Valve The pulmonary valve is grossly normal in structure. Trace pulmonic valve regurgitation is present. Great Vessels The aortic root is normal in size. IVC is normal in size and collapses >50% with inspiration. Pericardium There is no pericardial effusion. Other Information Study Quality: Fair Conclusion Normal biventricular systolic function. Mild RV dilation. Biatrial dilation. Moderate (ROJAS by continuity equation is 1.3 cm2. Mean AV gradient is 17 mmHg. Max AV gradient is 36 mmHg. Peak velocity is 3.0 m/s). Moderate to severe MAC. Mild MS (mean MV gradient 6 mmHg at HR 56 bpm). Mild MR. Electronically signed by : Cadence Arteaga MD 07/16/2025 17:10:25
--- NOTE | 2025-07-13 16:05 | XR_ITS ---
FINAL REPORT CLINICAL HISTORY: CHRONIC OBSTRUCTIVE PULMONARY DISEASE COPD TYPE FINDINGS: CHEST SPECIAL VIEWS/DECUB/LORDOTIC There is mild cardiomegaly with pulmonary vascular congestion. The mediastinum is unremarkable. The lungs are underinflated. There is no pneumothorax. IMPRESSION: Cardiomegaly with pulmonary vascular congestion. Reviewed, Interpreted and Dictated by Inocencio Hinojosa MD Transcribed by Anel Frankel Authenticated and [facility]
== END 2025-07-13 23:59 | disposition home or self-care (01) ==
LOC: RT 15:19
PROVIDERS: PCP Internal Medicine Adolescent Medicine; Visit Provider Physician Assistant
DX: I08.0 Rheumatic disorders of both mitral and aortic valves (principal); J44.9 Chronic obstructive pulmonary disease, unspecified; R09.89 Other specified symptoms and signs involving the circulatory and respiratory systems
CPT/HCPCS: 71045; 93306